=== PATIENT | male | born 1995 | race Caucasian/White ===

== ENCOUNTER 2023-08-27 11:56 | Emergency (ER) | payer MEDICAID ==
[~2023-08-27] VITALS: Ht 162.6 cm; Wt 57.6 kg
[2023-08-27 12:04] VITALS: BP 113/47; PULSE 66; RESP 20; TEMP 98; O2SAT 98
[2023-08-27] MEDS ORDERED: IBUP-2213 PO (12:30)
[2023-08-27] MEDS ORDERED: BACI-105 TP (12:30)
[2023-08-27] MEDS: BACITRACIN OINT 500 UNITS/GM PKT TP ONE (12:53)
[2023-08-27] MEDS: LIDOCAINE MPF 1% 10 MG/ML VIAL INJ ONE (12:53)
[2023-08-27] MEDS ORDERED: CEPH-588 PO (13:17)
[2023-08-27 13:50] VITALS: BP 121/62; PULSE 66; RESP 16; TEMP 98; O2SAT 99
== END 2023-08-27 13:50 | disposition home or self-care (01) ==
LOC: MED 11:56
DX: L60.0 Ingrowing nail (principal); Z79.899 Other long term (current) drug therapy
CPT/HCPCS: 11730; 99284; J2001

== ENCOUNTER 2023-08-30 11:41 | Emergency (ER) | payer MEDICAID ==
[~2023-08-30] VITALS: Ht 167.6 cm; Wt 57.8 kg
[~2023-08-30 11:41] MED LIST: BACI-105 TP; CEPH-588 PO; IBUP-2213 PO
[2023-08-30 11:50] VITALS: BP 108/48; PULSE 65; RESP 15; TEMP 98.2; O2SAT 99
== END 2023-08-30 12:33 | disposition home or self-care (01) ==
LOC: MED 11:41
DX: L60.0 Ingrowing nail (principal); Z79.1 Long term (current) use of non-steroidal anti-inflammatories (NSAID); Z79.899 Other long term (current) drug therapy
CPT/HCPCS: 99281